=== PATIENT | female | born 1995 | race Caucasian/White ===

== ENCOUNTER 2016-06-01 10:19 | Observation (INO) ==
[2016-06-01 11:07] LABS: Bilirubin,Urine Negative (Negative); Blood,Urine Trace (Negative); Clarity,Urine Cloudy (Clear); Color,Urine Yellow (Yellow); Glucose,Urine (UA) Normal (Normal); Ketones,Urine Negative (Negative); Leukocyte Esterase,Urine Large (Negative); Nitrite,Urine Positive (Negative); Protein,Urine Negative (Neg-Trace); Specific Gravity,Urine 1.014 (1.010-1.025); Urobilinogen,Urine Normal (Normal)
[2016-06-01 11:09] LABS: Bacteria,Urine Many per hpf (None-Few); Hyaline Casts,Urine None Seen per lpf (None-Few); RBC,Urine 0-3 per hpf (0-3); Squamous Epithelial Cell,Urine Many per lpf (None-Few); WBC,Urine 50-100 per hpf (0-3)
--- NOTE | 2016-06-01 11:27 | OB/GYN Progress Note ---
Date of Encounter: 06/01/16 Time of Encounter: 11:23 - Assessment and Plan (1) 36 weeks gestation of Current Visit: Yes Status: Acute No cervical change since last visit. Negative for leaking amniotic fluid. Suspect fluid is urine given that pt currently has a UTI. Discharge home with precautions. (2) UTI (urinary tract infection) Current Visit: Yes Status: Acute Pt already on Macrobid. Qualifiers: Urinary tract infection type: acute cystitis Hematuria presence: without hematuria Qualified Code(s): N30.00 - Acute cystitis without hematuria (3) NST (non-stress test) reactive Current Visit: Yes Status: Acute Subjective - Subjective Principal diagnosis: leaking fluid Interval history: 21 year-old at 36 weeks presenting with c/o 2 episodes of leaking fluid yesterday and today. She also reports some mild pressure and abdominal tightening. Good FM. No VB or other complaints. She is currently on Macrobid for UTI. Antepartum ROS: loss of fluid, movement normal, no vaginal bleeding, no contractions Objective - Vital Signs Vital Signs: Intake and Output 05/31/16 06/01/16 06/01/16 23:59 07:59 15:59 Other: Weight 85.6 kg Patient Weight 06/01/16 23:59 Weight 85.6 kg - Exam FHR: category 1 FHR comments: NST reactive Auscultation: bilateral: normal Abdomen: Present: soft, gravid. Absent: tenderness Uterus: Present: normal. Absent: tenderness Cervical dilation: 1 Cervix effacement: 50 station: -2 Comments: SSE physiologic appearing white discharge noted in vault. Negative pool, negative nitrazine, negative fern. - Labs Labs: Abnormal lab results Urine Clarity Cloudy (Clear) A 06/01/16 10:35 Urine Blood Trace (Negative) H 06/01/16 10:35 Urine Nitrite Positive (Negative) A 06/01/16 10:35 Ur Leukocyte Esterase Large (Negative) H 06/01/16 10:35
[2016-06-01 12:04] LABS: Mucus,Urine Moderate (Few)
== END 2016-06-01 11:45 | disposition home or self-care (01) ==
LOC: 1NENULAB
PROVIDERS: ADMIT Obstetrics & Gynecology; ATTEND Obstetrics & Gynecology

== ENCOUNTER 2016-06-23 00:13 | Observation (INO) ==
--- NOTE | 2016-06-22 16:03 | OB/GYN History & Physical ---
Date of Encounter: 06/22/16 Time of Encounter: 15:59 Assessment and Plan (1) 39 weeks gestation of Current visit: Yes Status: Acute Patient presents at 39 weeks gestation of with spontaneous rupture of membranes. Will monitor progression of labor. (2) Spontaneous rupture of membranes Current visit: Yes Status: Acute History of Present Illness Chief complaint: 39 weeks with loss of fluid HPI: Ms. Foster is a 21 year old female at 39 weeks who presents stating that her water broke. She reports a big "gush" of clear fluid at around 14:20 today. She reports that she is feeling cramping but no specific contractions. She reports good movement. She denies heacache, vision changes, chest pain, SOB, nausea/vomiting, or changes in bowel or bladder. Patient's last deliver was a vaginal delivery at 37 weeks after an induction for elevated blood pressures. She denies any problems with elevated blood pressure or blood sugars throughout this . Varicella antibody negative, remainder of serologies negative. GBS negative. Nitrozine test positive with obvious rupture of membranes. Past Med Surg Social Fam HX - Past Medical History Medical history: asthma Psychiatric history: no psych history - Social History Smoking Status: Never smoker Alcohol use: none Drug use: none - Family History Mother Adopted: Yes Hx Family Cardiac Disorders: No Hx Family Respiratory Disorders: No Hx Family Cancer: No Hx Family GI Disorders: No Hx Family Endocrine Disorder: No Hx Family Neuromuscular Disorders: No Hx Family Neurologic Disorders: No Hx Family HEENT Disorders: No Hx Family Autoimmune Disorders: No Obstetrical History - Pregnancies : 2 Para: 1 Term: 1 : 0 Ab's: 0 Livin - History/Complications History/Complications: Patient reports 37 week induction with previous due to elevated blood pressures Medications and Allergies Multivitamin [Flintstones] 1 each PO DAILY 06/01/16 [History] Cephalexin [Keflex] 500 mg PO DAILY 06/06/16 [History] Nitrofurantoin (BID) [Macrobid] 100 mg PO BID #14 capsule 06/06/16 [Rx] Allergies Erythromycin Base Adverse Reaction (Intermediate, Verified 06/06/16 12:47) Anxiety abd pain Review of System OB - Constitutional Constitutional ROS IM: no chills, no fever(s) - Cardiovascular Cardiovascular: no chest pain, no edema - Respiratory Respiratory: no cough, no dyspnea, no wheezing - Gastrointestinal Gastrointestinal: cramping, no constipation, no diarrhea, no nausea, no vomiting - Genitourinary Genitourinary: no urinary hesitancy, no urinary incontinence, no urinary urgency - Neurological Nerological: no confusion, no headache(s), no weakness Exam - Constitutional Constitutional: well developed, well nourished, no acute distress, average body habitus - HEENT HEENT: Normocephaly, Mucus Membranes Moist - Lungs Respiratory exam: CTAB - Cardiovascular Cardiovascular exam: RRR - Abdomen Abdomen: Present: bowel sounds normal, gravid - Extremities Extremities exam: full ROM, warm - Cervix Cervix: Present: discharge Dilation: 2 - Uterus Uterus exam: Present: normal size Results All other labs normal.
[2016-06-22 16:14] LABS: Basophils % 0.3 %; Eosinophils % 0.4 %; Hematocrit 38.5 % (35.3-44.9); Hemoglobin 12.7 g/dL (11.5-15.4); Immature Granulocytes % 1.7 % (0-4); Lymphocytes # 2.1 K/mcL (0.6-4.6); Lymphocytes % 20.4 %; Mean Corpuscular Hemoglobin 28.7 pg (28.0-33.3); Mean Corpuscular Volume 86.9 fL (83.0-100.0); Mean Platelet Volume 12.2 fL (9.4-12.4); Monocytes # 0.9 K/mcL (0.0-1.3); Monocytes % 9.1 %; Neutrophils # 7.1 K/mcL (1.6-8.9); Platelet Count 195 K/mcL (140-400); Red Blood Count 4.43 M/mcL (3.82-4.97); Red Cell Distribution Width 14.3 % (11.5-14.5); Segmented Neutrophils % 68.1 %
--- NOTE | 2016-06-22 18:37 | OB Labor Progress Note ---
Date of Encounter: 06/22/16 Time of Encounter: 18:35 Labor Progress Note - Subjective Subjective: patient doing well, has epidural - Vital Signs Vital Signs: VSS - Cervix Cervix: 3-4cm - Plan Plan: allow labor to continue with pitocin, now @ 8, FHT CAT 1, continue monitoring strip
--- NOTE | 2016-06-22 19:00 | Anesthesia Evaluation PreOp ---
Date of Encounter: 06/22/16 Time of Encounter: 18:40 - Past History Planned Operation: Labor Epidural Cardiac History: Denies any Significant Hx Pulmonary History: Denies Any Significant HX MOLDING MACHINE OPERATOR History: Denies Any Significant HX Other Medical History: Denies Any Significant HX Anesthesia History: No Prior Anesthetic Complications : Yes (full term) Alcohol Use: none Drug use: none Medications and Allergies Multivitamin [Flintstones] 1 each PO DAILY 06/01/16 [History] Cephalexin [Keflex] 500 mg PO DAILY 06/06/16 [History] Nitrofurantoin (BID) [Macrobid] 100 mg PO BID #14 capsule 06/06/16 [Rx] Allergies Erythromycin Base Adverse Reaction (Intermediate, Verified 06/06/16 12:47) Anxiety abd pain - Meds/Allergy Pre-op Review Medications Reviewed: Yes Allergies Reviewed: Yes Beta Blockers on Current Med List: No Anesthesia Results - Labs 06/22/16 15:50 Laboratory Tests 12/27/15 06/22/16 14:50 15:50 Hgb 12.7 Hct 38.5 Plt Count 195 Sodium 135 L Potassium 3.1 L Chloride 104 BUN 5 L Creatinine 0.52 L Anesthesia Exam O2 Sat Height 1.6 m Weight 88.2 kg O2 Sat by Pulse Oximetry 99 Vital Signs Temp Pulse Resp BP Pulse Ox 98.6 F 113 14 127/83 99 06/22/16 16:02 06/22/16 16:02 06/22/16 16:02 06/22/16 16:02 06/22/16 16:02 Height: 5'3 Weight: 194 lbs NPO (# of Hours): MN - HEENT Pupil (Motor): Pupils equal, EOMI Mallampati: II Teeth: Normal Oral Opening: Greater than 3 - MOLDING MACHINE OPERATOR LOC: Oriented MOLDING MACHINE OPERATOR Motor: Normal RUE, Normal LUE, Normal RLE, Normal LLE, Normal Face MOLDING MACHINE OPERATOR Sensory: Normal: RUE, LUE, RLE, LLE, Face - Cardiac Rhythm: Regular Murmur: None JVD: No Carotid Bruit: No - Pulmonary Breath Sounds: bilateral Clear Respiratory Effort: Symmetrical Anesthesia Assess/Plan ASA Score: 2 Modified [place] Scale for Level of Consciousness: Cooperative, oriented, and tranquil Anesthetic Plan: Regional Monitoring Plan: Standard Monitors Recovery Plan: Other (Discussed Epidural, agrees to proceed)
--- NOTE | 2016-06-22 19:03 | Anesthesia Procedures ---
Date of Encounter: 06/22/16 Time of Encounter: 18:40 Procedures: Anesthesia - Epidural/Spinal Patient ID/Chart reviewed: Yes Patient examined: Yes OB Eval: Gestational age: 39 weeks OB Eval: : 2 OB Eval: Hx Para: 1 OB Eval: Dilated at (cm): 5 OB Eval: Contractions: Non-stressed pattern Consent Obtained: Yes Supplemental Oxygen: None/Room Air Site Prep: Aseptic Technique, Sterile prep and drape, Povidone-Iodine 1% Patient position: upright Local Anesthetic: Lidocaine 1% Amount of Local Anesthetic used: 5 Touhy Needle Gauge: 19 Touhy Needle Depth (cm): 4 Catheter Depth at Skin (cm): 5 Test Dose Result: Negative Loading Dose: 0.25% Marcaine (mls): 10 Loading Dose: Fentanyl (mcg): 100 Loading Dose Administered: Thru Touhy Needle Infusion Med: 0.125% Bupivacaine w/ 2 mcg/ml Fentanyl Infusion Rate (mls/hr): [address]: Tegaderm Interspace Used: L4-L5 Loss of Resistance (FELI): Yes Blood: No CSF: No Paresthesia: No
--- NOTE | 2016-06-22 22:47 | OB/GYN Procedure Note ---
Delivery - Delivery Date: 06/22/16 Provider: Coty Nova Intrapartum events: none Delivery induction: none Delivery augmentation: pitocin Delivery monitor: external FHT Anesthesia: epidural Estimated Blood Loss: 100 - Infant (s) A Delivery Date: 06/22/16 Delivery Time: 21:51 Presentation: vertex Position: ALBERTO Gender: Female Viability: Viable Weight Gram: 3.31 kg at 1 minute: 8 at 5 mins: 9 Shoulder Dystocia: not encountered Specimens collected: cord blood - Repair Laceration Description: Periurethral - Complications Delivery complications: none - Disposition Mom disposition: stable in LDR [place] disposition: stable in LDR - Comments Comments: 21 y/o delivered a viable female at 2151 hrs, weight of 3310g( 7lbs 5oz), APGARs 8/9, EBL 100cc. Infant delivered ALBERTO, 3 VC, nuchal cord x 1. Placenta delivered at 2157hrs intact. No lacerations, mother and infant stable.
[~2016-06-23 00:13] MED LIST: *HR* FentaNYL (PF) 100 MCG/2 ML VIAL ONE; *HR* Nalbuphine 20 MG/ML AMPUL IVP SCH; Bupivacaine-MPF 0.25% 10 ML VIAL ONE; Epidural Premix (fent/bupiv) 110 ML EP ONE; Famotidine 20 MG/2 ML VIAL IVP PRN; Metoclopramide 10 MG/2 ML VIAL IVP PRN; Naloxone 0.4 MG/ML INJ IVP PRN; Oxytocin 20 units/ LR 1000 mL 20 UNIT/1,000 ML BAG IVC ONE; Oxytocin 20 units/ LR 1000 mL 20 UNIT/1,000 ML BAG IVC SCH; Ringers Solution, Lactated 1,000 ML IVC SCH
[2016-06-23] MEDS ORDERED: Oxytocin 20 units/ LR 1000 mL 20 UNIT/1,000 ML BAG IV SCH (00:15)
[2016-06-23] MEDS ORDERED: Measles/Mumps/Rubella Vacc 0.5 ML VIAL SQ PRN (00:15)
[2016-06-23] MEDS ORDERED: Ibuprofen 600 MG TABLET PO PRN (00:15)
[2016-06-23] MEDS ORDERED: Oxytocin 20 units/ LR 1000 mL 20 UNIT/1,000 ML BAG IVC ONE (00:15)
[2016-06-23 03:45] LABS: Basophils % 0.2 %; Eosinophils % 0.1 %; Hematocrit 32.2 % (35.3-44.9); Immature Granulocytes % 0.8 % (0-4); Immature Platelets 16.1 % (1.1-6.1); Lymphocytes # 2.2 K/mcL (0.6-4.6); Lymphocytes % 14.7 %; Mean Corpuscular HGB Conc 32.9 g/dL (31.6-35.5); Mean Corpuscular Hemoglobin 28.6 pg (28.0-33.3); Mean Corpuscular Volume 86.8 fL (83.0-100.0); Monocytes # 1.3 K/mcL (0.0-1.3); Monocytes % 8.4 %; Neutrophils # 11.5 K/mcL (1.6-8.9); Platelet Count 189 K/mcL (140-400); Red Blood Count 3.71 M/mcL (3.82-4.97); Red Cell Distribution Width 14.4 % (11.5-14.5); Segmented Neutrophils % 75.8 %
[2016-06-23 03:49] LABS: Hemoglobin 10.6 g/dL (11.5-15.4)
--- NOTE | 2016-06-23 08:39 | Discharge Summary ---
Date of Encounter: 06/23/16 Time of Encounter: 08:36 - Discharge Diagnosis (1) Vaginal delivery Priority: Primary Status: Acute Comments: Continue routine care discharge home today follow up in 4-[address] Morin (2) Breast feeding status of mother Priority: Secondary Status: Acute Comments: consult prn - Discharge Medications Prescriptions: Ibuprofen [Motrin] 600 mg PO Q6HR PRN #60 tablet PRN Reason: Cramping Home Medications: Multivitamin [Flintstones] 1 each PO DAILY 06/01/16 [History] Ibuprofen [Motrin] 600 mg PO Q6HR PRN #60 tablet 06/23/16 [Rx] Vit/FA 1 each PO DAILY tablet 06/23/16 [Rx] Allergies/Adverse Reactions: Allergies Erythromycin Base Adverse Reaction (Intermediate, Verified 06/06/16 12:47) Anxiety abd pain Data Procedures and tests throughout hospitalization: Laboratory Tests 06/22/16 06/22/16 06/23/16 15:50 22:48 03:35 WBC 10.4 15.2 H RBC 4.43 3.71 L Hgb 12.7 10.6 L D Hct 38.5 32.2 L MCV 86.9 86.8 MCH 28.7 28.6 MCHC 33.0 32.9 RDW 14.3 14.4 Plt Count 195 189 MPV 12.2 12.0 Immature Gran % 1.7 0.8 Seg Neutrophils % 68.1 75.8 Lymphocytes % 20.4 14.7 Monocytes % 9.1 8.4 Eosinophils % 0.4 0.1 Basophils % 0.3 0.2 Neutrophils # 7.1 11.5 H Lymphocytes # 2.1 2.2 Monocytes # 0.9 1.3 Eosinophils # 0.0 0.0 Basophils # 0.0 0.0 Immature Plt Fraction 16.1 H Baby's Blood Type O RH NEGATIVE Mother's Blood Type O RH NEGATIVE Rhogam Indicated NO Labs on day of discharge: Labs from last 24 hours 06/23/16 06/22/16 06/22/16 03:35 22:48 15:50 WBC 15.2 H 10.4 RBC 3.71 L 4.43 Hgb 10.6 L D 12.7 Hct 32.2 L 38.5 MCV 86.8 86.9 MCH 28.6 28.7 MCHC 32.9 33.0 RDW 14.4 14.3 Plt Count 189 195 MPV 12.0 12.2 Immature Gran % 0.8 1.7 Seg Neutrophils % 75.8 68.1 Lymphocytes % 14.7 20.4 Monocytes % 8.4 9.1 Eosinophils % 0.1 0.4 Basophils % 0.2 0.3 Neutrophils # 11.5 H 7.1 Lymphocytes # 2.2 2.1 Monocytes # 1.3 0.9 Eosinophils # 0.0 0.0 Basophils # 0.0 0.0 Immature Plt Fraction 16.1 H Baby's Blood Type O RH NEGATIVE Mother's Blood Type O RH NEGATIVE Rhogam Indicated NO Date of admission: 06/22/16 15:28 Primary care physician: Christopher Zazueta, Consults: 06/23/16 00:16 Consult to Manager Agency [CONS] Routine Comment: Vaginal delivery, consult needed Discharging clinician: Porsche Moore Anticipated date of discharge: 06/23/16 - Patient Status Disposition: Home, Self-Care Condition: Good Functional capacity at discharge: independent ambulation - Discharge Instructions Follow Up With: Christopher Zazueta MD [Primary Care Provider] - Henny Morin MD [Partnered Physician] - - Diet and Activity Activity: increase activity as tolerated Diet: regular diet Hospital Course Reason for admission: active labor Delivery: Episiotomy: none Laceration: none Other procedures: none complications: none Discharge diagnosis: IUP at term delivered baby: female (breast feeding) Time Attestation: Total time spent providing and/or coordinating discharge services: Time Spent: Less than 30 minutes Exam - Constitutional Vitals: Temp Pulse Resp BP Pulse Ox 98.0 F 95 16 118/76 97 06/23/16 02:30 06/23/16 02:30 06/23/16 02:30 06/23/16 02:30 06/23/16 02:30 General appearance IM: A&O X 3, pleasant, answers questions appropriately - Respiratory Respiratory exam: Present: CTAB - Cardiovascular Cardiovascular exam IM: Present: RRR, +S1, +S2 - GI/Abdominal GI/Abdominal exam IM: normal bowel sounds - Uterine Tone: Firm Uterus Position: 1 Finger Below Umbilicus, Midline - Extremities Exam Extremities exam IM: Present: full ROM, normal capillary refill, normal inspection - Neurological Exam Neurological exam: alert, oriented X3, reflexes normal
[2016-06-23] MEDS ORDERED: Prenatal Vit/FA 1 EACH TABLET PO SCH (09:00)
[2016-06-23 09:10] VITALS: BP 114/74
== END 2016-06-23 14:30 | disposition home or self-care (01) ==
LOC: 1NENULAB → 1NENUOBS 00:13
PROVIDERS: ADMIT Student in an Organized Health Care Education/Training Program; ATTEND Student in an Organized Health Care Education/Training Program